=== PATIENT | male | born 1965 | race African-American/Black ===

== ENCOUNTER 2016-08-17 09:23 | Inpatient (IN) | payer MEDICAID ==
[2016-08-17] MEDS ORDERED: FAMOTIDINE 20 MG TABLET PO ONE (10:09)
--- NOTE | 2016-08-17 10:11 | ER Document Report ---
ED Medical Screen (RME) - General Chief Complaint: Abdominal Pain Stated Complaint: ABDOMINAL PAIN Time seen by provider: 10:10 Mode of Arrival: Ambulatory Information source: Patient Notes: 50-year-old male presents to ED for abdominal cramping pain radiating to the chest and back. Generalized 5 out of 5. States he ate some raw or blisters last night about 10:00 pain started at 2 AM. Has a history of chronic back pain high blood pressure cholesterol and reflux. We'll order cardiac labs lipase x-rays and EKG as well as Pepcid. I have greeted and performed a rapid initial assessment of this patient. A comprehensive ED assessment and evaluation of the patient, analysis of test results and completion of medical decision making process will be conducted by an additional ED providers. TRAVEL OUTSIDE OF THE [place] IN LAST 30 DAYS: No - Related Data Allergies/Adverse Reactions: No Known Allergies Allergy (Verified 08/17/16 10:09) Past Medical History - Past Medical History Cardiac Medical History: Reports: Hx Hypertension Endocrine Medical History: Reports: Hx Diabetes Mellitus Type 1 Renal/ Medical History: Denies: Hx Peritoneal Dialysis GI Medical History: Reports: Hx Cirrhosis, Hx Hepatitis Infectious Medical History: Reports: Hx Hepatitis Physical Exam - Vital signs Vitals: Temp Pulse Resp BP Pulse Ox 97.4 F 91 20 119/89 H 98 08/17/16 09:30 08/17/16 09:30 08/17/16 09:30 08/17/16 09:30 08/17/16 09:30 Course - Vital Signs Vital signs: Temp Pulse Resp BP Pulse Ox 97.4 F 91 20 119/89 H 98 08/17/16 09:30 08/17/16 09:30 08/17/16 09:30 08/17/16 09:30 08/17/16 09:30
[2016-08-17] MEDS ORDERED: NORMAL SALINE 1000 ML 1,000 ML IV ONE ×2 (10:23→11:48)
[2016-08-17] MEDS ORDERED: ONDANSETRON HCL INJ/PF 4 MG/2 ML SDV IV ONE (10:24)
--- NOTE | 2016-08-17 10:29 | ER Document Report ---
ED General - General Chief Complaint: Abdominal Pain Stated Complaint: ABDOMINAL PAIN Time seen by provider: 10:25 Mode of Arrival: Ambulatory Information source: Patient Notes: 50-year-old male began developing epigastric pain about 2 AM the now involves his entire abdomen worse in the left upper quadrant and occasionally moving into the left lower chest. At times been associated with diaphoresis and nausea and he reports one episode of vomiting after arrival here. He reports last bowel movement yesterday was normal for him. He denies fever, chills, cough, shortness of breath, hematemesis, hematochezia, or melena. He ate oysters yesterday evening and he speculates that this might be a reaction to that. He doesn't recall prior episodes of pain like this. He reports history of cirrhosis secondary to alcohol use and hepatitis C. He says he still drinking alcohol says he didn't complete treatment for hepatitis C. He follows with a physician in [place] for this. Physical Exam: General: Alert, appears well. HEENT: Normocephalic. Atraumatic. PERRLA. Extraocular movements intact. Oropharynx clear. Neck: Supple. Non-tender. No JVD Respiratory: No respiratory distress. Clear and equal breath sounds bilaterally. Chest is not tender to palpation Cardiovascular: Regular rate and rhythm. PMI not displaced Abdominal: Normal Inspection. Soft. Moderate left upper quadrant tenderness. Mild tenderness in the epigastric region and left lower quadrant. No guarding rebound rigidity or referred pain. Back: Non-tender. No deformity or step off. Extremities all warm to plus pulses no cyanosis no Homans sign trace pedal edema bilaterally Neurological: Speech clear mentation normal sign language teacher strength 5 out of 5 equal both upper extremities motor function 5 out of 5 and equal both lower extremities Psychological: Normal affect. Normal Mood. Skin: Warm. Dry. Normal color. TRAVEL OUTSIDE OF THE [place] IN LAST 30 DAYS: No - Related Data Allergies/Adverse Reactions: No Known Allergies Allergy (Verified 08/17/16 10:09) Past Medical History - General Information source: Patient - Social History Smoking Status: Never Smoker Frequency of alcohol use: Heavy Family History: None Patient has suicidal ideation: No Patient has homicidal ideation: No - Past Medical History Cardiac Medical History: Reports: Hx Hypertension Endocrine Medical History: Reports: Hx Diabetes Mellitus Type 1 Renal/ Medical History: Denies: Hx Peritoneal Dialysis GI Medical History: Reports: Hx Cirrhosis, Hx Hepatitis Infectious Medical History: Reports: Hx Hepatitis Past Surgical History: Reports: Other - Multiple surgeries for vascular repair to right forearm - Immunizations Hx Pneumococcal Vaccination: 04/15/10 Review of Systems - Review of Systems Constitutional: Weight gain - Patient unsure how much. denies: Fever, Weakness EENT: denies: Ear pain, Nose pain, Throat pain Cardiovascular: See HPI Respiratory: denies: Cough, Short of breath, Wheezing Gastrointestinal: See HPI Genitourinary: denies: Burning, Hematuria Musculoskeletal: Leg swelling. denies: Back pain Skin: denies: Rash Hematologic/Lymphatic: denies: Swollen glands Neurological/Psychological: denies: Weakness, Numbness Physical Exam - Vital signs Vitals: Temp Pulse Resp BP Pulse Ox 97.4 F 91 20 119/89 H 98 08/17/16 09:30 08/17/16 09:30 08/17/16 09:30 08/17/16 09:30 08/17/16 09:30 Course - Re-evaluation Re-evalutation: 08/17/16 15:08 Reevaluation shows essentially no change in exam. Workup find evidence for alcohol pancreatitis the patient now reports he has had that problem in the past which required admission but he thinks it's been several years since the last time. Patient requests admission locally and agreeable of this facility can handle this problem he has no evidence for gallstone pancreatitis. I discussed case with Dr. Leahy of the hospitalist service and he will be admitting patient patient's magnesium and potassium are low and these were supplemented - Vital Signs Vital signs: Temp Pulse Resp BP Pulse Ox 97.4 F 91 19 119/89 H 99 08/17/16 09:30 08/17/16 09:30 08/17/16 13:00 08/17/16 09:30 08/17/16 13:00 - Laboratory Result Diagrams: 08/17/16 10:40 08/17/16 10:40 Laboratory results interpreted by me: 08/17/16 08/17/16 08/17/16 10:40 10:40 11:00 RBC 3.94 L Hgb 12.3 L Hct 36.7 L RDW 14.1 H Plt Count 112 L Seg Neutrophils % 80.7 H Sodium 147.3 H Potassium 3.3 L Carbon Dioxide 20 L Anion Gap 20 H Glucose 184 H Magnesium 1.2 L* AST 71 H ALT 76 H Lipase 2525.5 H Urine Blood SMALL H - Diagnostic Test Radiology reviewed: Image reviewed, Reports reviewed - EKG Interpretation by Me Additional EKG results interpreted by me: 08/17/16 10:31 EKG reviewed by myself shows sinus tachycardia at 103 with no acute changes Discharge - Discharge Clinical Impression: Hypokalemia, Hypomagnesemia Alcohol-induced pancreatitis Qualifiers: Chronicity: acute Acute pancreatitis complication: no infection or necrosis Qualified Code(s): K85.20 - Alcohol induced acute pancreatitis without necrosis or infection Condition: Fair Disposition: ADMITTED INPATIENT Admitting Provider: Hospitalist Unit Admitted: Telemetry
[2016-08-17 10:55] LABS: ABSOLUTE LYMPHOCYTES (AUTO) 1.1 10^3/uL (0.5-4.7); ABSOLUTE MONOCYTES (AUTO) 0.3 10^3/uL (0.1-1.4); ABSOLUTE NEUT (AUTO) 6.1 10^3/uL (1.7-8.2); BASOPHILS % (AUTO) 0.6 % (0-2); HEMATOCRIT 36.7 % (37.9-51.0); HEMOGLOBIN 12.3 g/dL (13.5-17.0); HGB HCT DIFFERENCE 0.2; LYMPHOCYTES % (AUTO) 14.3 % (13-45); MEAN CORPUSCULAR HEMOGLOBIN 31.2 pg (27.0-33.4); MEAN CORPUSCULAR HGB CONC 33.5 g/dL (32.0-36.0); MEAN CORPUSCULAR VOLUME 93 fl (80-97); MONOCYTES % (AUTO) 4.4 % (3-13); RED BLOOD COUNT 3.94 10^6/uL (4.35-5.55); RED CELL DISTRIBUTION WIDTH 14.1 % (11.5-14.0); SEGMENTED NEUTROPHILS % (AUTO) 80.7 % (42-78); WHITE BLOOD COUNT 7.6 10^3/uL (4.0-10.5)
[2016-08-17 11:15] LABS: ALANINE AMINOTRANSFERASE 76 U/L (21-72); ALCOHOL 108 mg/dL (NONE DETECTED); ALKALINE PHOSPHATASE 116 U/L (38-126); ASPARTATE AMINO TRANSFERASE 71 U/L (17-59); BILIRUBIN,DIRECT 0.4 mg/dL (0.0-0.4); BILIRUBIN,TOTAL 0.6 mg/dL (0.2-1.3); BLOOD UREA NITROGEN 15 mg/dL (7-20); CALCIUM 8.6 mg/dL (8.4-10.2); CARBON DIOXIDE 20 mmol/L (22-30); CHLORIDE 107 mmol/L (98-107); CREATINE KINASE 138 U/L (55-170); CREATININE RESULT 0.83 mg/dL (0.52-1.25); GLUCOSE 184 mg/dL (75-110); POTASSIUM 3.3 mmol/L (3.6-5.0); SODIUM 147.3 mmol/L (137-145); TOTAL PROTEIN 7.8 g/dL (6.3-8.2)
[2016-08-17 11:26] LABS: CREATINE KINASE MB 1.25 ng/mL (<4.55)
[2016-08-17 11:28] LABS: TROPONIN I < 0.012 ng/mL
[2016-08-17 11:29] LABS: APPEARANCE,URINE CLEAR; BILIRUBIN,URINE NEGATIVE (NEGATIVE); GLUCOSE, URINE NEGATIVE (NEGATIVE); KETONES,URINE NEGATIVE (NEGATIVE); LEUKOCYTE ESTERASE,URINE NEGATIVE (NEGATIVE); NITRITE,URINE NEGATIVE (NEGATIVE); PROTEIN,URINE NEGATIVE (NEGATIVE); URINE SPECIFIC GRAVITY 1.013; UROBILINOGEN,URINE NEGATIVE mg/dL (<2.0)
[2016-08-17 11:33] LABS: LIPASE 2525.5 U/L (23-300)
[2016-08-17 11:35] LABS: MAGNESIUM 1.2 mg/dL (1.6-2.3)
[2016-08-17 11:46] LABS: ANION GAP 20 (5-19)
[2016-08-17] MEDS ORDERED: POTASSI CL 20 MEQ/NS 1L 1,000 ML IV ONE (11:49)
[2016-08-17] MEDS ORDERED: THIAMINE HCL 100 MG in NORMAL SALINE 50 ML IV ONE (12:06)
[2016-08-17] MEDS ORDERED: FOLIC ACID INJ 5 MG/1 ML 10 ML VIAL IV PRN (12:06)
[2016-08-17] MEDS: MAGNESIUM SULFATE/D5W 100 ML IV SCH ×4 (12:41→17:35)
--- NOTE | 2016-08-17 12:47 | EKG REPORT ---
SEVERITY:- BORDERLINE ECG - SINUS TACHYCARDIA BORDERLINE PROLONGED QT INTERVAL : Confirmed by: Dionicio Kaur MD 17-Aug-2016 12:46:30
[2016-08-17] MEDS ORDERED: MORPHINE SULFATE 10 MG/ML INJ IV ONE (12:49)
[2016-08-17] MEDS ORDERED: THIAMINE HCL 100 MG, FOLIC ACID 1 MG in NORMAL SALINE 50 ML IV ONE (13:15)
[2016-08-17] MEDS ORDERED: LORAZEPAM INJ 2 MG/1 ML VIAL IV PRN (15:32)
[2016-08-17] MEDS ORDERED: ONDANSETRON HCL INJ/PF 4 MG/2 ML SDV IV PRN (15:35)
[2016-08-17] MEDS ORDERED: DEXTROSE 40% GEL 15 GM TUBE PO PRN ×2 (15:42)
[2016-08-17] MEDS ORDERED: GLUCAGON,HUMAN RECOMB 1 MG INJ IM PRN (15:42)
[2016-08-17] MEDS ORDERED: HYDRALAZINE HCL INJ/PF 20 MG/1 ML SDV IV PRN (15:42)
[2016-08-17] MEDS ORDERED: DEXTROSE 50%-WATER 25 GM/50 ML DISP.SYRIN IV PRN ×2 (15:42)
--- NOTE | 2016-08-17 16:28 | PDOC H&P ---
History of Present Illness Admission Date/PCP: 08/17/16 15:35 Dixon Ruffin MD Patient complains of: Abdominal pain History of Present Illness: KELL HERNÁNDEZ III is a 50 year old male with past medical history of alcohol abuse, hepatitis C cirrhosis, type II diabetes, hypertension, gout, pancreatitis history presents to the emergency department with onset at 2 AM of pancreatitis. Last alcohol use was last night. He states he has never been through alcohol withdrawal. Medications listed below have not been verified at the time of this documentation. Past Medical History Cardiac Medical History: Reports: Hypertension Endocrine Medical History: Reports: Diabetes Mellitus Type 2 GI Medical History: Reports: Cirrhosis, Hepatitis Infectious Medical History: Reports: Hepatitis C Past Surgical History Past Surgical History: Reports: Other - Multiple surgeries for vascular repair to right forearm Social History Information Source: Patient Lives with: Spouse/Significant other Smoking Status: Never Smoker Frequency of Alcohol Use: Heavy Hx Recreational Drug Use: No Hx Prescription Drug Abuse: No - Advance Directive Resuscitation Status: Full Code Family History Family History: CAD - Father, Other - Gout-father Parental Family History Reviewed: Yes Children Family History Reviewed: Yes Sibling(s) Family History Reviewed.: Yes Medication/Allergy Home Medications: Amlodipine Besylate tab PO DAILY 10/19/12 Aspirin 81 mg PO DAILY 10/19/12 Insulin Glargine,Hum.rec.anlog [Lantus Insulin 100 Unit/mL] 10 unit SUBCUT QHS 10/19/12 Lisinopril [Prinivil 2.5 mg Tablet] mg PO 10/19/12 Metformin HCl 1,000 mg PO BID 10/19/12 Omeprazole [Prilosec 10 mg Capsule] mg PO 10/19/12 Magnesium Oxide [Mag-Ox 400 mg Tablet] 400 mg PO BID #60 tablet 10/20/12 Allergies/Adverse Reactions: No Known Allergies Allergy (Verified 08/17/16 10:09) Review of Systems Constitutional: ABSENT: chills, fever(s), headache(s), weight gain, weight loss Eyes: ABSENT: visual disturbances Ears: ABSENT: hearing changes Cardiovascular: ABSENT: chest pain, dyspnea on exertion, edema, orthropnea, palpitations Respiratory: ABSENT: cough, hemoptysis Gastrointestinal: PRESENT: abdominal pain, nausea, vomiting. ABSENT: constipation, diarrhea, hematemesis, hematochezia Genitourinary: ABSENT: dysuria, hematuria Musculoskeletal: ABSENT: joint swelling Integumentary: ABSENT: rash, wounds Neurological: ABSENT: abnormal gait, abnormal speech, confusion, dizziness, focal weakness, syncope Psychiatric: ABSENT: anxiety, depression, homidical ideation, suicidal ideation Endocrine: ABSENT: cold intolerance, heat intolerance, polydipsia, polyuria Hematologic/Lymphatic: ABSENT: easy bleeding, easy bruising Physical Exam Vital Signs: Temp Pulse Resp BP Pulse Ox 97.4 F 91 19 119/89 H 99 08/17/16 09:30 08/17/16 09:30 08/17/16 13:00 08/17/16 09:30 08/17/16 13:00 PHYSICAL EXAM: GENERAL: Appears well, no acute distress HEENT: Normocephalic, no scleral icterus, conjunctiva clear, EOEM intact, PERRLA , moist mucous membranes NECK: trachea midline, no thyromegally RESPIRATORY: Clear to auscultation, no wheezes/rhonchi CARDIAC: Regular rate and rhythm, no murmur/fanny/rub ABDOMEN: Soft, mild abdominal distension, diffuse tenderness and guarding, normal bowel sounds, negative Lang sign RECTAL: deferred : deferred EXTREMITIES: No edema, cyanosis, clubbing MUSCULOSKELETAL: No joint swelling or deformity VASCULAR: normal peripheral pulses NEUROLOGIC: Alert, oriented to person/place/time, normal speech, cranial nerves grossly intact, 5/5 strength in all extremities, tactile sensation intact in all extremities SKIN: No rash, no wounds, no worrisome skin lesions PSYCHIATRIC: Normal mood, normal affect Results Laboratory Results: Labs- All tests 24 hr 08/17/16 08/17/16 08/17/16 10:40 10:40 10:40 WBC 7.6 RBC 3.94 L Hgb 12.3 L Hct 36.7 L MCV 93 MCH 31.2 MCHC 33.5 RDW 14.1 H Plt Count 112 L Seg Neutrophils % 80.7 H Lymphocytes % 14.3 Monocytes % 4.4 Eosinophils % 0.0 Basophils % 0.6 Absolute Neutrophils 6.1 Absolute Lymphocytes 1.1 Absolute Monocytes 0.3 Absolute Eosinophils 0.0 Absolute Basophils 0.0 Sodium 147.3 H Potassium 3.3 L Chloride 107 Carbon Dioxide 20 L Anion Gap 20 H BUN 15 Creatinine 0.83 Est GFR ( Amer) > 60 Est GFR (Non-Af Amer) > 60 Glucose 184 H Calcium 8.6 Magnesium 1.2 L* Total Bilirubin 0.6 Direct Bilirubin 0.4 Indirect Bilirubin Not Reportable Neonat Total Bilirubin Not Reportable AST 71 H ALT 76 H Alkaline Phosphatase 116 Creatine Kinase 138 CK-MB (CK-2) 1.25 Troponin I < 0.012 NT-Pro-B Natriuret Pep 41 Total Protein 7.8 Albumin 4.0 Lipase 2525.5 H Urine Color Urine Appearance Urine pH Ur Specific [place] Urine Protein Urine Glucose (UA) Urine Ketones Urine Blood Urine Nitrite Urine Bilirubin Urine Urobilinogen Ur Leukocyte Esterase Urine RBC (Auto) U Hyaline Cast (Auto) Urine Mucus (Auto) Urine Ascorbic Acid Serum Alcohol 108 08/17/16 11:00 WBC RBC Hgb Hct MCV MCH MCHC RDW Plt Count Seg Neutrophils % Lymphocytes % Monocytes % Eosinophils % Basophils % Absolute Neutrophils Absolute Lymphocytes Absolute Monocytes Absolute Eosinophils Absolute Basophils Sodium Potassium Chloride Carbon Dioxide Anion Gap BUN Creatinine Est GFR ( Amer) Est GFR (Non-Af Amer) Glucose Calcium Magnesium Total Bilirubin Direct Bilirubin Indirect Bilirubin Neonat Total Bilirubin AST ALT Alkaline Phosphatase Creatine Kinase CK-MB (CK-2) Troponin I NT-Pro-B Natriuret Pep Total Protein Albumin Lipase Urine Color YELLOW Urine Appearance CLEAR Urine pH 5.0 Ur Specific [place] 1.013 Urine Protein NEGATIVE Urine Glucose (UA) NEGATIVE Urine Ketones NEGATIVE Urine Blood SMALL H Urine Nitrite NEGATIVE Urine Bilirubin NEGATIVE Urine Urobilinogen NEGATIVE Ur Leukocyte Esterase NEGATIVE Urine RBC (Auto) 1 U Hyaline Cast (Auto) 3 Urine Mucus (Auto) RARE Urine Ascorbic Acid NEGATIVE Serum Alcohol Impressions: Abdomen/Pelvis CT 08/17/16 10:23 IMPRESSION: There are some minimal edematous or inflammatory changes in the mesenteric fat adjacent to the tail the pancreas. A small amount of free fluid is identified in the left pericolic gutter. No discrete pancreatic mass or fluid collection is identified. Clinical correlation is recommended right pancreatitis involving the pancreatic tail. Small umbilical hernia is identified containing fat. Other findings as noted above Chest X-Ray 08/17/16 10:23 IMPRESSION: NO ACUTE RADIOGRAPHIC FINDING IN THE CHEST. Abdomen Ultrasound 08/17/16 11:47 IMPRESSION: 1. Borderline common bile duct with questionable small amount of sludge in the gallbladder. No gallstones are seen, however. There is no pericholecystic fluid or gallbladder wall thickening. 2. Hepatomegaly. Assessment & Plan - Diagnosis (1) Alcoholic pancreatitis Qualifiers: Chronicity: acute Acute pancreatitis complication: no infection or necrosis Qualified Code(s): K85.20 - Alcohol induced acute pancreatitis without necrosis or infection Is this a current diagnosis for this admission?: YesPlan: Admit to the hospital. IV fluids. Nothing by mouth status. When necessary analgesics and antiemetics. Follow-up lipase. Check lipid panel. Right upper quadrant ultrasound negative for gallstones. (2) Diabetes Qualifiers: Diabetes mellitus type: type 2 Diabetes mellitus complication status: without complication Diabetes mellitus residential insulin use: with terminal worker use Qualified Code(s): E11.9 - Type 2 diabetes mellitus without complications; Z79.4 - skilled nursing (current) use of insulin Is this a current diagnosis for this admission?: YesPlan: Hold Lantus while nothing by mouth (patient usually takes Lantus 5 units daily) . Sliding scale insulin coverage. Check hemoglobin A1c. (3) Hypertension Is this a current diagnosis for this admission?: YesPlan: Hold routine medications for now. When necessary IV hydralazine. (4) Hypernatremia Is this a current diagnosis for this admission?: YesPlan: Hypotonic saline. (5) Hepatitis C Is this a current diagnosis for this admission?: Yes (6) Cirrhosis Is this a current diagnosis for this admission?: Yes (7) Gout Is this a current diagnosis for this admission?: Yes (8) Hypokalemia Is this a current diagnosis for this admission?: Yes (9) Hypomagnesemia Is this a current diagnosis for this admission?: Yes - Time Time Spent: Greater than 70 Minutes Anticipated discharge: Home - Inpatient Certification Based on my medical assessment, after consideration of the patient's comorbidities, presenting symptoms, or acuity I expect that the services needed warrant INPATIENT care.: Yes I certify that my determination is in accordance with my understanding of Medicare's requirements for reasonable and necessary INPATIENT services [42 CFR 412.3e].: Yes Medical Necessity: Need Close Monitoring Due to Risk of Patient Decompensation, Need For IV Fluids, Need for Pain Control
[2016-08-17] MEDS: HYDROMORPHONE HCL INJ/PF 2 MG/ML AMPULE IV PRN ×2 (16:41→23:25)
[2016-08-17] MEDS: PANTOPRAZOLE SODIUM 40 MG VIAL IV SCH (22:32)
[2016-08-17] MEDS: POTASSI CL 20 MEQ/1/2NS 1L 1,000 ML IV PRN (23:02)
[2016-08-18] MEDS: HYDROMORPHONE HCL INJ/PF 2 MG/ML AMPULE IV PRN ×4 (03:01→20:11)
[2016-08-18] MEDS: POTASSI CL 20 MEQ/1/2NS 1L 1,000 ML IV PRN ×3 (04:07→20:03)
[2016-08-18 05:43] LABS: ABSOLUTE LYMPHOCYTES (AUTO) 4.3 10^3/uL (0.5-4.7); ABSOLUTE MONOCYTES (AUTO) 0.9 10^3/uL (0.1-1.4); ABSOLUTE NEUT (AUTO) 8.6 10^3/uL (1.7-8.2); BASOPHILS % (AUTO) 0.3 % (0-2); EOSINOPHILS % (AUTO) 0.2 % (0-6); HEMOGLOBIN 11.9 g/dL (13.5-17.0); HGB HCT DIFFERENCE 0.7; LYMPHOCYTES % (AUTO) 30.8 % (13-45); MEAN CORPUSCULAR HEMOGLOBIN 31.4 pg (27.0-33.4); MEAN CORPUSCULAR VOLUME 92 fl (80-97); MONOCYTES % (AUTO) 6.6 % (3-13); RED BLOOD COUNT 3.79 10^6/uL (4.35-5.55); RED CELL DISTRIBUTION WIDTH 14.1 % (11.5-14.0); SEGMENTED NEUTROPHILS % (AUTO) 62.1 % (42-78); WHITE BLOOD COUNT 13.9 10^3/uL (4.0-10.5)
[2016-08-18 06:06] LABS: ALANINE AMINOTRANSFERASE 68 U/L (21-72); ALBUMIN 3.6 g/dL (3.5-5.0); ALKALINE PHOSPHATASE 109 U/L (38-126); ANION GAP 13 (5-19); ASPARTATE AMINO TRANSFERASE 72 U/L (17-59); BILIRUBIN,DIRECT 0.7 mg/dL (0.0-0.4); BILIRUBIN,TOTAL 1.9 mg/dL (0.2-1.3); BLOOD UREA NITROGEN 7 mg/dL (7-20); CALCIUM 7.4 mg/dL (8.4-10.2); CARBON DIOXIDE 23 mmol/L (22-30); CHLORIDE 106 mmol/L (98-107); CHOLESTEROL 64.69 mg/dL (0-200); CREATININE RESULT 0.69 mg/dL (0.52-1.25); Direct HDL 20 mg/dL (>40); GLUCOSE 147 mg/dL (75-110); LIPASE 1065.4 U/L (23-300); MAGNESIUM 1.3 mg/dL (1.6-2.3); SODIUM 142.3 mmol/L (137-145); TRIGLYCERIDES 150 mg/dL (<150)
[2016-08-18 06:07] LABS: TOTAL PROTEIN 7.4 g/dL (6.3-8.2)
[2016-08-18 06:42] LABS: DIRECT LDL < 30 mg/dL (<100)
[2016-08-18] MEDS ORDERED: FONDAPARINUX SODIUM INJ 2.5 MG/0.5 ML DISP.SYRIN SUBCUT SCH (08:00)
[2016-08-18] MEDS ORDERED: MAGNESIUM SULFATE/D5W 100 ML IV SCH (09:00)
[2016-08-18] MEDS: PANTOPRAZOLE SODIUM 40 MG VIAL IV SCH ×2 (10:59→23:04)
[2016-08-18] MEDS: POTASSI CL 20 MEQ/50 ML RIDER 50 ML IV SCH ×2 (10:59→13:18)
[2016-08-18] MEDS: THIAMINE HCL 100 MG, FOLIC ACID 1 MG in NORMAL SALINE 50 ML IV SCH (11:07)
--- NOTE | 2016-08-18 14:25 | PDOC PROGRESS REPORT ---
Subjective Progress Note for:: 08/18/16 Subjective:: Patient is having continued abdominal pain radiating to his mid back. He denies nausea, vomiting, fever, chills, chest pain, shortness of breath. Physical Exam Vital Signs: Temp Pulse Resp BP Pulse Ox 98.6 F 107 H 17 142/85 H 96 08/18/16 11:34 08/18/16 11:34 08/18/16 11:34 08/18/16 11:34 08/18/16 11:34 Intake & Output 08/17/16 08/18/16 08/19/16 06:59 06:59 06:59 Intake Total 1767 150 Balance 1767 150 Weight 96.8 kg GENERAL: No acute distress HEENT: Conjunctiva clear, nonicteric, moist mucous membranes, no JVD, midline trachea RESPIRATORY: Clear to auscultation bilaterally, no wheezes, no rhonchi CARDIAC: Regular rate and rhythm, no murmurs/gallops/rubs ABDOMEN: Distended, diffusely tender, no guarding, positive bowel sounds EXTREMETIES: No edema, cyanosis, clubbing NEUROLOGIC: Alert, oriented to person/place/time, CN's grossly intact, no focal deficits SKIN: No rash, wounds PSYCH: Normal mood, normal affect Results Laboratory Results: 08/18/16 04:56 08/18/16 04:56 08/18/16 08/18/16 04:56 04:56 WBC 13.9 H RBC 3.79 L Hgb 11.9 L Hct 35.0 L MCV 92 MCH 31.4 MCHC 34.0 RDW 14.1 H Plt Count 93 L Seg Neutrophils % 62.1 Lymphocytes % 30.8 Monocytes % 6.6 Eosinophils % 0.2 Basophils % 0.3 Absolute Neutrophils 8.6 H Absolute Lymphocytes 4.3 Absolute Monocytes 0.9 Absolute Eosinophils 0.0 Absolute Basophils 0.0 Sodium 142.3 Potassium 3.0 L* Chloride 106 Carbon Dioxide 23 Anion Gap 13 BUN 7 Creatinine 0.69 Est GFR ( Amer) > 60 Est GFR (Non-Af Amer) > 60 Glucose 147 H Calcium 7.4 L Magnesium 1.3 L Total Bilirubin 1.9 H AST 72 H ALT 68 Alkaline Phosphatase 109 Total Protein 7.4 Albumin 3.6 Triglycerides 150 Cholesterol 64.69 LDL Cholesterol Direct < 30 VLDL Cholesterol 30.0 HDL Cholesterol 20 L Lipase 1065.4 H Impressions: Abdomen/Pelvis CT 08/17/16 10:23 IMPRESSION: There are some minimal edematous or inflammatory changes in the mesenteric fat adjacent to the tail the pancreas. A small amount of free fluid is identified in the left pericolic gutter. No discrete pancreatic mass or fluid collection is identified. Clinical correlation is recommended right pancreatitis involving the pancreatic tail. Small umbilical hernia is identified containing fat. Other findings as noted above Chest X-Ray 08/17/16 10:23 IMPRESSION: NO ACUTE RADIOGRAPHIC FINDING IN THE CHEST. Abdomen Ultrasound 08/17/16 11:47 IMPRESSION: 1. Borderline common bile duct with questionable small amount of sludge in the gallbladder. No gallstones are seen, however. There is no pericholecystic fluid or gallbladder wall thickening. 2. Hepatomegaly. Assessment & Plan - Diagnosis (1) Alcoholic pancreatitis Qualifiers: Chronicity: acute Acute pancreatitis complication: no infection or necrosis Qualified Code(s): K85.20 - Alcohol induced acute pancreatitis without necrosis or infection Is this a current diagnosis for this admission?: YesPlan: Continue IV fluids. Nothing by mouth status. When necessary analgesics and antiemetics. Follow-up lipase. Triglyceride level 150. Right upper quadrant ultrasound negative for gallstones. (2) Alcohol abuse Is this a current diagnosis for this admission?: YesPlan: Continue thiamine supplementation. Monitor for signs of withdrawal. When necessary Ativan. (3) Diabetes Qualifiers: Diabetes mellitus type: type 2 Diabetes mellitus complication status: without complication Diabetes mellitus intermediate teacher insulin use: with nursing home use Qualified Code(s): E11.9 - Type 2 diabetes mellitus without complications Is this a current diagnosis for this admission?: YesPlan: Hold Lantus while nothing by mouth (patient usually takes Lantus 5 units daily) . Sliding scale insulin coverage. Hemoglobin A1c 5.2. (4) Hypertension Is this a current diagnosis for this admission?: YesPlan: Resume metoprolol 50 mg twice daily. Continue to hold Norvasc for now. When necessary IV hydralazine. (5) Hypernatremia Is this a current diagnosis for this admission?: YesPlan: Resolved. (6) Hepatitis C Is this a current diagnosis for this admission?: Yes (7) Cirrhosis Is this a current diagnosis for this admission?: Yes (8) Gout Is this a current diagnosis for this admission?: Yes (9) Hypokalemia Is this a current diagnosis for this admission?: YesPlan: Replace as needed. (10) Hypomagnesemia Is this a current diagnosis for this admission?: YesPlan: Replace as needed. - Time Time Spent with patient: 35 or more minutes Anticipated discharge: Home
[2016-08-18] MEDS ORDERED: MAGNESIUM SULFATE/D5W 1 GM/100 ML RTUPB IV ONE (15:15)
[2016-08-18] MEDS: METOPROLOL TARTRATE 50 MG TABLET PO SCH (17:29)
[2016-08-19] MEDS: POTASSI CL 20 MEQ/1/2NS 1L 1,000 ML IV PRN ×5 (01:16→23:54)
[2016-08-19] MEDS: HYDROMORPHONE HCL INJ/PF 2 MG/ML AMPULE IV PRN ×4 (03:47→23:53)
[2016-08-19] MEDS: METOPROLOL TARTRATE 50 MG TABLET PO SCH ×2 (06:11→17:35)
[2016-08-19 07:32] LABS: HEMATOCRIT 36.1 % (37.9-51.0); HGB HCT DIFFERENCE -0.1; MEAN CORPUSCULAR HEMOGLOBIN 31.1 pg (27.0-33.4); MEAN CORPUSCULAR HGB CONC 33.2 g/dL (32.0-36.0); MEAN CORPUSCULAR VOLUME 94 fl (80-97); RED BLOOD COUNT 3.85 10^6/uL (4.35-5.55); RED CELL DISTRIBUTION WIDTH 13.9 % (11.5-14.0)
[2016-08-19 07:33] LABS: ALANINE AMINOTRANSFERASE 57 U/L (21-72); ALBUMIN 3.5 g/dL (3.5-5.0); ALKALINE PHOSPHATASE 116 U/L (38-126); ANION GAP 12 (5-19); ASPARTATE AMINO TRANSFERASE 63 U/L (17-59); BILIRUBIN,DIRECT 1.2 mg/dL (0.0-0.4); BILIRUBIN,TOTAL 2.6 mg/dL (0.2-1.3); BLOOD UREA NITROGEN 5 mg/dL (7-20); CARBON DIOXIDE 20 mmol/L (22-30); CHLORIDE 104 mmol/L (98-107); CREATININE RESULT 0.69 mg/dL (0.52-1.25); GLUCOSE 142 mg/dL (75-110); LIPASE 398.9 U/L (23-300); POTASSIUM 3.7 mmol/L (3.6-5.0); TOTAL PROTEIN 7.5 g/dL (6.3-8.2)
[2016-08-19 07:42] LABS: CALCIUM 6.9 mg/dL (8.4-10.2); MAGNESIUM 1.2 mg/dL (1.6-2.3)
[2016-08-19 07:53] LABS: BASOPHILS % (MANUAL) 0 % (0-2); EOSINOPHILS % (MANUAL) 0 % (0-6); LYMPHOCYTES % (MANUAL) 18 % (13-45); TOTAL CELLS COUNTED 100
[2016-08-19 07:56] LABS: HYPOCHROMASIA SLIGHT
[2016-08-19] MEDS ORDERED: CALCIUM GLUCONATE 1,000 MG in DEXTROSE 5%-WATER 50 ML IV ONE (08:15)
[2016-08-19] MEDS ORDERED: CALCIUM GLUCONATE 1000 MG/10 ML INJ IV ONE (10:00)
[2016-08-19] MEDS: MAGNESIUM SULFATE/D5W 100 ML IV SCH ×2 (10:08→11:11)
[2016-08-19] MEDS: THIAMINE HCL 100 MG, FOLIC ACID 1 MG in NORMAL SALINE 50 ML IV SCH (11:11)
[2016-08-19] MEDS: PANTOPRAZOLE SODIUM 40 MG VIAL IV SCH ×2 (11:12→21:35)
[2016-08-19] MEDS: PIPERACILLIN SODIUM/TAZOBACTAM 3.375 GM in NORMAL SALINE 100 ML IV SCH ×3 (12:23→23:54)
--- NOTE | 2016-08-19 14:21 | PDOC PROGRESS REPORT ---
Subjective Progress Note for:: 08/19/16 Subjective:: Patient is having continued abdominal pain radiating to his mid back. He now also complains of pain and stiffness in his left knee. He does have a history of gout. He denies nausea, vomiting, fever, chills, chest pain, shortness of breath. Physical Exam Vital Signs: Temp Pulse Resp BP Pulse Ox 99.8 F 90 18 149/82 H 97 08/19/16 12:02 08/19/16 12:02 08/19/16 12:02 08/19/16 12:02 08/19/16 12:02 Intake & Output 08/18/16 08/19/16 08/20/16 06:59 06:59 06:59 Intake Total 1767 4650 Output Total 750 Balance 1767 3900 Weight 96.8 kg 97.9 kg GENERAL: No acute distress HEENT: Conjunctiva clear, nonicteric, moist mucous membranes, no JVD, midline trachea RESPIRATORY: Clear to auscultation bilaterally, no wheezes, no rhonchi CARDIAC: Regular rate and rhythm, no murmurs/gallops/rubs ABDOMEN: Distended, diffusely tender, no guarding, positive bowel sounds EXTREMETIES: No edema, cyanosis, clubbing. Left knee swelling and tenderness NEUROLOGIC: Alert, oriented to person/place/time, CN's grossly intact, no focal deficits SKIN: No rash, wounds PSYCH: Normal mood, normal affect Results Laboratory Results: 08/19/16 06:39 08/19/16 06:39 08/19/16 08/19/16 06:39 06:39 WBC 20.0 H RBC 3.85 L Hgb 12.0 L Hct 36.1 L MCV 94 MCH 31.1 MCHC 33.2 RDW 13.9 Plt Count 74 L Seg Neutrophils % Not Reportable Lymphocytes % Not Reportable Monocytes % Not Reportable Eosinophils % Not Reportable Basophils % Not Reportable Absolute Neutrophils Not Reportable Absolute Lymphocytes Not Reportable Absolute Monocytes Not Reportable Absolute Eosinophils Not Reportable Absolute Basophils Not Reportable Sodium 136.0 L Potassium 3.7 Chloride 104 Carbon Dioxide 20 L Anion Gap 12 BUN 5 L Creatinine 0.69 Est GFR ( Amer) > 60 Est GFR (Non-Af Amer) > 60 Glucose 142 H Calcium 6.9 L* Magnesium 1.2 L* Total Bilirubin 2.6 H AST 63 H ALT 57 Alkaline Phosphatase 116 Total Protein 7.5 Albumin 3.5 Lipase 398.9 H Impressions: Abdomen Ultrasound 08/17/16 11:47 IMPRESSION: 1. Borderline common bile duct with questionable small amount of sludge in the gallbladder. No gallstones are seen, however. There is no pericholecystic fluid or gallbladder wall thickening. 2. Hepatomegaly. Abdomen/Pelvis CT 08/19/16 00:00 IMPRESSION: STABLE TO SLIGHTLY WORSENED PERIPANCREATIC INFLAMMATORY CHANGE WITH INCREASED FREE FLUID IN THE ABDOMEN AND PELVIS AND NEW SMALL LEFT PLEURAL EFFUSION ALL CONSISTENT WITH HISTORY OF PANCREATITIS. Chest X-Ray 08/19/16 08:20 IMPRESSION: NO ACUTE RADIOGRAPHIC FINDING IN THE CHEST. Assessment & Plan - Diagnosis (1) Alcoholic pancreatitis Qualifiers: Chronicity: acute Acute pancreatitis complication: no infection or necrosis Qualified Code(s): K85.20 - Alcohol induced acute pancreatitis without necrosis or infection Is this a current diagnosis for this admission?: YesPlan: Continue IV fluids. Nothing by mouth status. When necessary analgesics and antiemetics. Follow-up lipase. Triglyceride level 150. Right upper quadrant ultrasound negative for gallstones. (2) Alcohol abuse Is this a current diagnosis for this admission?: YesPlan: Continue thiamine supplementation. Monitor for signs of withdrawal. When necessary Ativan. (3) Diabetes Qualifiers: Diabetes mellitus type: type 2 Diabetes mellitus complication status: without complication Diabetes mellitus long-term insulin use: with middle or intermediate school principal use Qualified Code(s): E11.9 - Type 2 diabetes mellitus without complications Is this a current diagnosis for this admission?: YesPlan: Hold Lantus while nothing by mouth (patient usually takes Lantus 5 units daily) . Sliding scale insulin coverage. Hemoglobin A1c 5.2. (4) Hypertension Is this a current diagnosis for this admission?: YesPlan: Metoprolol 50 mg twice daily. Continue to hold Norvasc for now. When necessary IV hydralazine. (5) Hypernatremia Is this a current diagnosis for this admission?: YesPlan: Resolved. (6) Hepatitis C Is this a current diagnosis for this admission?: Yes (7) Cirrhosis Is this a current diagnosis for this admission?: Yes (8) Gout Is this a current diagnosis for this admission?: YesPlan: Give colchicine 1.2 mg 1 dose now and then 0.6 mg 1 dose in 2 hours. (9) Hypokalemia Is this a current diagnosis for this admission?: YesPlan: Replace as needed. (10) Hypomagnesemia Is this a current diagnosis for this admission?: YesPlan: Replace as needed. (11) Hypocalcemia Is this a current diagnosis for this admission?: YesPlan: Replace as needed. (12) Thrombocytopenia Is this a current diagnosis for this admission?: YesPlan: Likely secondary to alcohol abuse, cirrhosis, and pancreatitis. Discontinue Arixtra. Encouraged patient to ambulate. - Time Time Spent with patient: 35 or more minutes Anticipated discharge: Home
[2016-08-19] MEDS ORDERED: COLCHICINE 0.6 MG TABLET PO ONE (17:30)
[2016-08-20] MEDS: ACETAMINOPHEN 325 MG TABLET PO PRN (02:06)
[2016-08-20] MEDS: METOPROLOL TARTRATE 50 MG TABLET PO SCH ×2 (04:47→17:53)
[2016-08-20] MEDS: POTASSI CL 20 MEQ/1/2NS 1L 1,000 ML IV PRN ×2 (06:08→17:55)
[2016-08-20] MEDS: PIPERACILLIN SODIUM/TAZOBACTAM 3.375 GM in NORMAL SALINE 100 ML IV SCH ×4 (06:08→23:13)
[2016-08-20 06:19] LABS: ABSOLUTE LYMPHOCYTES (AUTO) 2.8 10^3/uL (0.5-4.7); ABSOLUTE MONOCYTES (AUTO) 1.5 10^3/uL (0.1-1.4); ABSOLUTE NEUT (AUTO) 14.2 10^3/uL (1.7-8.2); BASOPHILS % (AUTO) 0.2 % (0-2); EOSINOPHILS % (AUTO) 0.2 % (0-6); HEMATOCRIT 32.8 % (37.9-51.0); HEMOGLOBIN 11.1 g/dL (13.5-17.0); HGB HCT DIFFERENCE 0.5; MEAN CORPUSCULAR HEMOGLOBIN 31.5 pg (27.0-33.4); MEAN CORPUSCULAR HGB CONC 33.7 g/dL (32.0-36.0); MEAN CORPUSCULAR VOLUME 94 fl (80-97); MONOCYTES % (AUTO) 8.2 % (3-13); RED BLOOD COUNT 3.51 10^6/uL (4.35-5.55); RED CELL DISTRIBUTION WIDTH 13.9 % (11.5-14.0); SEGMENTED NEUTROPHILS % (AUTO) 76.4 % (42-78); WHITE BLOOD COUNT 18.6 10^3/uL (4.0-10.5)
[2016-08-20 06:22] LABS: PARTIAL THROMBOPLASTIN TIME 34.9 SEC (23.5-35.8)
[2016-08-20 06:38] LABS: ALANINE AMINOTRANSFERASE 47 U/L (21-72); ALBUMIN 3.2 g/dL (3.5-5.0); ALKALINE PHOSPHATASE 102 U/L (38-126); ANION GAP 15 (5-19); ASPARTATE AMINO TRANSFERASE 55 U/L (17-59); BILIRUBIN,DIRECT 1.4 mg/dL (0.0-0.4); BILIRUBIN,TOTAL 2.2 mg/dL (0.2-1.3); BLOOD UREA NITROGEN 5 mg/dL (7-20); CARBON DIOXIDE 17 mmol/L (22-30); CHLORIDE 104 mmol/L (98-107); CREATININE RESULT 0.76 mg/dL (0.52-1.25); GLUCOSE 116 mg/dL (75-110); LIPASE 236.1 U/L (23-300); MAGNESIUM 1.3 mg/dL (1.6-2.3); POTASSIUM 3.8 mmol/L (3.6-5.0); SODIUM 135.5 mmol/L (137-145); TOTAL PROTEIN 6.7 g/dL (6.3-8.2)
[2016-08-20 06:48] LABS: CALCIUM 6.8 mg/dL (8.4-10.2)
[2016-08-20] MEDS ORDERED: CALCIUM GLUCONATE 1,000 MG in DEXTROSE 5%-WATER 50 ML IV ONE (06:57)
[2016-08-20] MEDS ORDERED: MAGNESIUM SULFATE/D5W 100 ML IV SCH (07:00)
[2016-08-20] MEDS ORDERED: CALCIUM GLUCONATE 1000 MG/10 ML INJ IV ONE (07:30)
--- NOTE | 2016-08-20 08:34 | PDOC PROGRESS REPORT ---
Subjective Progress Note for:: 08/20/16 Subjective:: Abdominal pain improving. Left knee pain improving. No nausea or vomiting. No fevers or chills. +Flatus. Physical Exam Vital Signs: Temp Pulse Resp BP Pulse Ox 98.7 F 81 20 149/90 H 97 08/20/16 07:21 08/20/16 07:21 08/20/16 07:21 08/20/16 07:21 08/20/16 07:21 Intake & Output 08/19/16 08/20/16 08/21/16 06:59 06:59 06:59 Intake Total 4650 3490 Output Total 750 600 Balance 3900 2890 Weight 97.9 kg 100.6 kg GENERAL: No acute distress HEENT: Conjunctiva clear, nonicteric, moist mucous membranes, no JVD, midline trachea RESPIRATORY: Clear to auscultation bilaterally, no wheezes, no rhonchi CARDIAC: Regular rate and rhythm, no murmurs/gallops/rubs ABDOMEN: Distended, diffusely tender, no guarding, positive bowel sounds EXTREMETIES: No edema, cyanosis, clubbing. Left knee swelling and tenderness NEUROLOGIC: Alert, oriented to person/place/time, CN's grossly intact, no focal deficits SKIN: No rash, wounds PSYCH: Normal mood, normal affect Results Laboratory Results: 08/20/16 05:41 08/20/16 05:41 08/20/16 08/20/16 05:41 05:41 WBC 18.6 H RBC 3.51 L Hgb 11.1 L Hct 32.8 L MCV 94 MCH 31.5 MCHC 33.7 RDW 13.9 Plt Count 77 L Seg Neutrophils % 76.4 Lymphocytes % 15.0 Monocytes % 8.2 Eosinophils % 0.2 Basophils % 0.2 Absolute Neutrophils 14.2 H Absolute Lymphocytes 2.8 Absolute Monocytes 1.5 H Absolute Eosinophils 0.0 Absolute Basophils 0.0 Sodium 135.5 L Potassium 3.8 Chloride 104 Carbon Dioxide 17 L Anion Gap 15 BUN 5 L Creatinine 0.76 Est GFR ( Amer) > 60 Est GFR (Non-Af Amer) > 60 Glucose 116 H Calcium 6.8 L* Magnesium 1.3 L Total Bilirubin 2.2 H AST 55 ALT 47 Alkaline Phosphatase 102 Total Protein 6.7 Albumin 3.2 L Lipase 236.1 Impressions: Abdomen Ultrasound 08/17/16 11:47 IMPRESSION: 1. Borderline common bile duct with questionable small amount of sludge in the gallbladder. No gallstones are seen, however. There is no pericholecystic fluid or gallbladder wall thickening. 2. Hepatomegaly. Abdomen/Pelvis CT 08/19/16 00:00 IMPRESSION: STABLE TO SLIGHTLY WORSENED PERIPANCREATIC INFLAMMATORY CHANGE WITH INCREASED FREE FLUID IN THE ABDOMEN AND PELVIS AND NEW SMALL LEFT PLEURAL EFFUSION ALL CONSISTENT WITH HISTORY OF PANCREATITIS. Chest X-Ray 08/19/16 08:20 IMPRESSION: NO ACUTE RADIOGRAPHIC FINDING IN THE CHEST. Assessment & Plan - Diagnosis (1) Alcoholic pancreatitis Qualifiers: Chronicity: acute Acute pancreatitis complication: no infection or necrosis Qualified Code(s): K85.20 - Alcohol induced acute pancreatitis without necrosis or infection Is this a current diagnosis for this admission?: YesPlan: Continue IV fluids. Start clear liquid diet. When necessary analgesics and antiemetics. Follow-up lipase. Triglyceride level 150. Right upper quadrant ultrasound negative for gallstones. (2) Alcohol abuse Is this a current diagnosis for this admission?: YesPlan: Continue thiamine supplementation. Monitor for signs of withdrawal. When necessary Ativan. (3) Diabetes Qualifiers: Diabetes mellitus type: type 2 Diabetes mellitus complication status: without complication Diabetes mellitus oil heaterman insulin use: with oil heaterman use Qualified Code(s): E11.9 - Type 2 diabetes mellitus without complications Is this a current diagnosis for this admission?: YesPlan: Resume Lantus 5 units QHS. Sliding scale insulin coverage. Hemoglobin A1c 5.2. (4) Hypertension Is this a current diagnosis for this admission?: YesPlan: Metoprolol 50 mg twice daily. Resume Norvasc. When necessary IV hydralazine. (5) Hypernatremia Is this a current diagnosis for this admission?: Yes (6) Hepatitis C Is this a current diagnosis for this admission?: Yes (7) Cirrhosis Is this a current diagnosis for this admission?: Yes (8) Gout Is this a current diagnosis for this admission?: YesPlan: Treated with colchicine (9) Hypokalemia Is this a current diagnosis for this admission?: Yes (10) Hypomagnesemia Is this a current diagnosis for this admission?: YesPlan: Replace as needed. Start MagOx 800mg BID. (11) Hypocalcemia Is this a current diagnosis for this admission?: YesPlan: Replace as needed. (12) Thrombocytopenia Is this a current diagnosis for this admission?: YesPlan: Likely secondary to alcohol abuse, cirrhosis, and pancreatitis. Discontinued Arixtra. Encouraged patient to ambulate. - Time Time Spent with patient: 35 or more minutes Anticipated discharge: Home Within: within 72 hours
[2016-08-20] MEDS: MAGNESIUM SULFATE/D5W 100 ML IV SCH ×2 (08:57→10:07)
[2016-08-20] MEDS: MAGNESIUM OXIDE 400 MG TABLET PO SCH ×2 (09:08→17:54)
[2016-08-20] MEDS: AMLODIPINE BESYLATE 10 MG TABLET PO SCH (09:08)
[2016-08-20] MEDS: LANSOPRAZOLE 30 MG TAB.RAP.DR PO SCH (09:09)
[2016-08-20] MEDS: THIAMINE HCL 100 MG, FOLIC ACID 1 MG in NORMAL SALINE 50 ML IV SCH (10:07)
[2016-08-20] MEDS: HYDROMORPHONE HCL INJ/PF 2 MG/ML AMPULE IV PRN ×3 (11:15→20:27)
[2016-08-20] MEDS ORDERED: COLCHICINE 0.6 MG TABLET PO ONE (14:30)
[2016-08-20] MEDS: INSULIN LISPRO 100 UNIT/ML 3 ML VIAL SUBCUT PRN (16:40)
[2016-08-20] MEDS: INSULIN GLARGINE,HUM.REC.ANLOG 300 UNIT/3 ML INSULN.PEN SUBCUT SCH (23:12)
[2016-08-21] MEDS: HYDROMORPHONE HCL INJ/PF 2 MG/ML AMPULE IV PRN ×5 (00:27→20:34)
[2016-08-21] MEDS: METOPROLOL TARTRATE 50 MG TABLET PO SCH ×2 (05:37→18:13)
[2016-08-21] MEDS: PIPERACILLIN SODIUM/TAZOBACTAM 3.375 GM in NORMAL SALINE 100 ML IV SCH ×4 (05:37→23:12)
[2016-08-21 06:02] LABS: ABSOLUTE EOSINOPHILS # (AUTO) 0.1 10^3/uL (0.0-0.6); ABSOLUTE LYMPHOCYTES (AUTO) 2.4 10^3/uL (0.5-4.7); ABSOLUTE MONOCYTES (AUTO) 1.4 10^3/uL (0.1-1.4); ABSOLUTE NEUT (AUTO) 8.6 10^3/uL (1.7-8.2); BASOPHILS % (AUTO) 0.3 % (0-2); EOSINOPHILS % (AUTO) 1.1 % (0-6); HEMATOCRIT 31.3 % (37.9-51.0); HEMOGLOBIN 10.7 g/dL (13.5-17.0); HGB HCT DIFFERENCE 0.8; LYMPHOCYTES % (AUTO) 18.7 % (13-45); MEAN CORPUSCULAR HEMOGLOBIN 31.6 pg (27.0-33.4); MEAN CORPUSCULAR HGB CONC 34.3 g/dL (32.0-36.0); MEAN CORPUSCULAR VOLUME 92 fl (80-97); RED CELL DISTRIBUTION WIDTH 13.7 % (11.5-14.0); SEGMENTED NEUTROPHILS % (AUTO) 68.9 % (42-78); WHITE BLOOD COUNT 12.6 10^3/uL (4.0-10.5)
[2016-08-21 06:17] LABS: ALANINE AMINOTRANSFERASE 52 U/L (21-72); ALBUMIN 3.2 g/dL (3.5-5.0); ALKALINE PHOSPHATASE 104 U/L (38-126); ANION GAP 11 (5-19); ASPARTATE AMINO TRANSFERASE 70 U/L (17-59); BILIRUBIN,TOTAL 1.5 mg/dL (0.2-1.3); BLOOD UREA NITROGEN 4 mg/dL (7-20); CALCIUM 7.2 mg/dL (8.4-10.2); CARBON DIOXIDE 22 mmol/L (22-30); CHLORIDE 102 mmol/L (98-107); CREATININE RESULT 0.64 mg/dL (0.52-1.25); GLUCOSE 162 mg/dL (75-110); LIPASE 261.5 U/L (23-300); MAGNESIUM 1.6 mg/dL (1.6-2.3); POTASSIUM 3.4 mmol/L (3.6-5.0); SODIUM 134.7 mmol/L (137-145); TOTAL PROTEIN 6.9 g/dL (6.3-8.2)
[2016-08-21] MEDS: INSULIN LISPRO 100 UNIT/ML 3 ML VIAL SUBCUT PRN ×2 (08:35→11:54)
[2016-08-21] MEDS: AMLODIPINE BESYLATE 10 MG TABLET PO SCH (09:26)
[2016-08-21] MEDS: LANSOPRAZOLE 30 MG TAB.RAP.DR PO SCH (09:26)
[2016-08-21] MEDS: MAGNESIUM OXIDE 400 MG TABLET PO SCH ×2 (09:26→18:14)
[2016-08-21] MEDS: THIAMINE HCL 100 MG, FOLIC ACID 1 MG in NORMAL SALINE 50 ML IV SCH (09:26)
[2016-08-21] MEDS: POTASSI CL 20 MEQ/1/2NS 1L 1,000 ML IV PRN ×3 (09:26→22:12)
[2016-08-21] MEDS ORDERED: POTASSIUM CHLORIDE 10 MEQ TABLET.SA PO ONE (11:05)
[2016-08-21] MEDS ORDERED: COLCHICINE 0.6 MG TABLET PO ONE (12:15)
--- NOTE | 2016-08-21 14:22 | PDOC PROGRESS REPORT ---
Subjective Progress Note for:: 08/21/16 Subjective:: Patient was seen this morning at the bedside. He is complaining of gouty flare of the left knee and pain with the left toe. Dr. Leahy gave him a dose of colchicine yesterday which he states helped. He has some minimal abdominal pain and has been on clear liquids. He states that he is ready for his diet to be advanced. No acute events overnight. Physical Exam Vital Signs: Temp Pulse Resp BP Pulse Ox 98.6 F 91 18 138/78 H 100 08/21/16 08:13 08/21/16 08:13 08/21/16 08:13 08/21/16 08:13 08/21/16 08:13 Intake & Output 08/20/16 08/21/16 08/22/16 06:59 06:59 06:59 Intake Total 3490 5904 Output Total 600 1450 Balance 2890 4454 Weight 100.6 kg 99 kg Physical exam: Gen.: This a well-developed well-nourished appearing after [place] male resting on side of his bed currently in no acute distress Heart: Regular rate and rhythm no murmurs rubs or gallops Lungs: Clear to auscultation bilaterally with equal rise and fall of chest Abdomen: Soft nondistended Extremities: No clubbing or cyanosis. Peripheral pulses 1+. Some swelling of the left knee there is warmth with palpation. Very minimal tenderness to palpation of the toe. Neuro: Awake alert oriented 3 cranial nerves II through XII are grossly intact. Results Laboratory Results: 08/21/16 05:29 08/21/16 05:29 08/21/16 08/21/16 05:29 05:29 WBC 12.6 H RBC 3.40 L Hgb 10.7 L Hct 31.3 L MCV 92 MCH 31.6 MCHC 34.3 RDW 13.7 Plt Count 72 L Seg Neutrophils % 68.9 Lymphocytes % 18.7 Monocytes % 11.0 Eosinophils % 1.1 Basophils % 0.3 Absolute Neutrophils 8.6 H Absolute Lymphocytes 2.4 Absolute Monocytes 1.4 Absolute Eosinophils 0.1 Absolute Basophils 0.0 Sodium 134.7 L Potassium 3.4 L Chloride 102 Carbon Dioxide 22 Anion Gap 11 BUN 4 L Creatinine 0.64 Est GFR ( Amer) > 60 Est GFR (Non-Af Amer) > 60 Glucose 162 H Calcium 7.2 L Magnesium 1.6 Total Bilirubin 1.5 H AST 70 H ALT 52 Alkaline Phosphatase 104 Total Protein 6.9 Albumin 3.2 L Lipase 261.5 Impressions: Abdomen Ultrasound 08/17/16 11:47 IMPRESSION: 1. Borderline common bile duct with questionable small amount of sludge in the gallbladder. No gallstones are seen, however. There is no pericholecystic fluid or gallbladder wall thickening. 2. Hepatomegaly. Abdomen/Pelvis CT 08/19/16 00:00 IMPRESSION: STABLE TO SLIGHTLY WORSENED PERIPANCREATIC INFLAMMATORY CHANGE WITH INCREASED FREE FLUID IN THE ABDOMEN AND PELVIS AND NEW SMALL LEFT PLEURAL EFFUSION ALL CONSISTENT WITH HISTORY OF PANCREATITIS. Chest X-Ray 08/19/16 08:20 IMPRESSION: NO ACUTE RADIOGRAPHIC FINDING IN THE CHEST. Assessment & Plan - Diagnosis (1) Alcoholic pancreatitis Qualifiers: Chronicity: acute Acute pancreatitis complication: no infection or necrosis Qualified Code(s): K85.20 - Alcohol induced acute pancreatitis without necrosis or infection Is this a current diagnosis for this admission?: YesPlan: Lipase is normal. Will advance patient's diet to full clears. I suspect if the patient does well with this he may go home tomorrow. (2) Diabetes Qualifiers: Diabetes mellitus type: type 2 Diabetes mellitus complication status: without complication Diabetes mellitus custodial insulin use: with joint terminal attack controller use Qualified Code(s): E11.9 - Type 2 diabetes mellitus without complications Is this a current diagnosis for this admission?: YesPlan: Blood sugars are consistently below 200. Continue current medications. (3) Gout Qualifiers: Gout site: knee Gout etiology: idiopathic Laterality: left Chronicity: acute Qualified Code(s): M10.062 - Idiopathic gout, left knee Is this a current diagnosis for this admission?: YesPlan: Will give another dose of colchicine. This doesn't help the patient today I would recommend indomethacin. He states that he has no trouble taking NSAIDs. (4) Hepatitis C Is this a current diagnosis for this admission?: Yes (5) Hypernatremia Is this a current diagnosis for this admission?: YesPlan: Resolved (6) Thrombocytopenia Is this a current diagnosis for this admission?: YesPlan: Secondary to underlying cirrhosis stable (7) Alcohol abuse Is this a current diagnosis for this admission?: YesPlan: Alcohol cessation is recommended. (8) Cirrhosis Is this a current diagnosis for this admission?: Yes - Time Time Spent with patient: 25-34 minutes Anticipated discharge: Home - Inpatient Certification Medical Necessity: Significant Comorbidiites Make Outpatient Treatment Too Risky
[2016-08-21] MEDS: COLCHICINE 0.6 MG TABLET PO SCH (23:11)
[2016-08-21] MEDS: INSULIN GLARGINE,HUM.REC.ANLOG 300 UNIT/3 ML INSULN.PEN SUBCUT SCH (23:11)
[2016-08-22] MEDS: HYDROMORPHONE HCL INJ/PF 2 MG/ML AMPULE IV PRN (04:04)
[2016-08-22] MEDS: POTASSI CL 20 MEQ/1/2NS 1L 1,000 ML IV PRN ×2 (04:04→10:30)
[2016-08-22] MEDS: METOPROLOL TARTRATE 50 MG TABLET PO SCH ×2 (05:37→17:35)
[2016-08-22] MEDS: PIPERACILLIN SODIUM/TAZOBACTAM 3.375 GM in NORMAL SALINE 100 ML IV SCH (05:37)
[2016-08-22] MEDS: MAGNESIUM OXIDE 400 MG TABLET PO SCH ×2 (09:08→17:35)
[2016-08-22] MEDS: LANSOPRAZOLE 30 MG TAB.RAP.DR PO SCH (09:08)
[2016-08-22] MEDS: AMLODIPINE BESYLATE 10 MG TABLET PO SCH (09:09)
[2016-08-22] MEDS: COLCHICINE 0.6 MG TABLET PO SCH ×2 (09:09→22:33)
[2016-08-22] MEDS: THIAMINE HCL 100 MG, FOLIC ACID 1 MG in NORMAL SALINE 50 ML IV SCH (09:14)
[2016-08-22] MEDS ORDERED: OXYCODONE-ACETAMINOPHEN 5-325 MG TABLET PO ONE (09:30)
--- NOTE | 2016-08-22 14:24 | PDOC PROGRESS REPORT ---
Subjective Progress Note for:: 08/22/16 Subjective:: Patient feels that knee and toe are doing better today. He is able to ambulate the halls. He tolerated full liquids. He has no complaints and denies any chest pain or shortness of breath. Physical Exam Vital Signs: Temp Pulse Resp BP Pulse Ox 97.9 F 88 17 144/80 H 100 08/22/16 12:26 08/22/16 12:26 08/22/16 12:26 08/22/16 12:26 08/22/16 12:26 Intake & Output 08/21/16 08/22/16 08/23/16 06:59 06:59 06:59 Intake Total 5904 6232 Output Total 1450 1750 Balance 4454 4482 Weight 99 kg Physical exam: Gen.: This a well-developed well-nourished appearing after [place] male resting in his chair currently in no acute distress Heart: Regular rate and rhythm no murmurs rubs or gallops Lungs: Clear to auscultation bilaterally with equal rise and fall of chest Abdomen: Soft nondistended Extremities: No clubbing or cyanosis. Peripheral pulses 1+. Some swelling of the left knee. there is warmth with palpation. 1+ edema on the left and trace on the right Neuro: Awake alert oriented 3 cranial nerves II through XII are grossly intact. Results Laboratory Results: 08/21/16 05:29 08/21/16 05:29 Impressions: Abdomen Ultrasound 08/17/16 11:47 IMPRESSION: 1. Borderline common bile duct with questionable small amount of sludge in the gallbladder. No gallstones are seen, however. There is no pericholecystic fluid or gallbladder wall thickening. 2. Hepatomegaly. Abdomen/Pelvis CT 08/19/16 00:00 IMPRESSION: STABLE TO SLIGHTLY WORSENED PERIPANCREATIC INFLAMMATORY CHANGE WITH INCREASED FREE FLUID IN THE ABDOMEN AND PELVIS AND NEW SMALL LEFT PLEURAL EFFUSION ALL CONSISTENT WITH HISTORY OF PANCREATITIS. Chest X-Ray 08/19/16 08:20 IMPRESSION: NO ACUTE RADIOGRAPHIC FINDING IN THE CHEST. Assessment & Plan - Diagnosis (1) Alcoholic pancreatitis Qualifiers: Chronicity: acute Acute pancreatitis complication: no infection or necrosis Qualified Code(s): K85.20 - Alcohol induced acute pancreatitis without necrosis or infection Is this a current diagnosis for this admission?: YesPlan: Lipase is normal. Will advance patient's diet to full soft, low-fat diet. I suspect if the patient does well with this he may go home tomorrow. (2) Diabetes Qualifiers: Diabetes mellitus type: type 2 Diabetes mellitus complication status: without complication Diabetes mellitus correction insulin use: with vermin exterminator use Qualified Code(s): E11.9 - Type 2 diabetes mellitus without complications Is this a current diagnosis for this admission?: YesPlan: Blood sugars are consistently below 200. Continue current medications. (3) Gout Qualifiers: Gout site: knee Gout etiology: idiopathic Laterality: left Chronicity: acute Qualified Code(s): M10.062 - Idiopathic gout, left knee Is this a current diagnosis for this admission?: YesPlan: Continue maintenance doses of colchicine. Patient had a one-time dose of Percocet. Have relieves most of his pain.. (4) Hepatitis C Is this a current diagnosis for this admission?: Yes (5) Hypernatremia Is this a current diagnosis for this admission?: YesPlan: Resolved (6) Thrombocytopenia Is this a current diagnosis for this admission?: YesPlan: Secondary to underlying cirrhosis stable (7) Alcohol abuse Is this a current diagnosis for this admission?: YesPlan: Alcohol cessation is recommended. (8) Cirrhosis Is this a current diagnosis for this admission?: Yes - Time Time Spent with patient: 15-24 minutes - Inpatient Certification Medical Necessity: Significant Comorbidiites Make Outpatient Treatment Too Risky
[2016-08-22] MEDS: INSULIN LISPRO 100 UNIT/ML 3 ML VIAL SUBCUT PRN ×2 (15:12→17:36)
[2016-08-22] MEDS: ACETAMINOPHEN 325 MG TABLET PO PRN (17:42)
[2016-08-22] MEDS: INSULIN GLARGINE,HUM.REC.ANLOG 300 UNIT/3 ML INSULN.PEN SUBCUT SCH (22:33)
[2016-08-23] MEDS: ACETAMINOPHEN 325 MG TABLET PO PRN ×2 (02:15→08:23)
[2016-08-23 04:40] LABS: ABSOLUTE EOSINOPHILS # (AUTO) 0.1 10^3/uL (0.0-0.6); ABSOLUTE LYMPHOCYTES (AUTO) 2.9 10^3/uL (0.5-4.7); ABSOLUTE MONOCYTES (AUTO) 1.2 10^3/uL (0.1-1.4); ABSOLUTE NEUT (AUTO) 5.3 10^3/uL (1.7-8.2); BASOPHILS % (AUTO) 0.4 % (0-2); EOSINOPHILS % (AUTO) 1.1 % (0-6); HEMATOCRIT 36.4 % (37.9-51.0); HEMOGLOBIN 12.4 g/dL (13.5-17.0); HGB HCT DIFFERENCE 0.8; MEAN CORPUSCULAR HEMOGLOBIN 31.6 pg (27.0-33.4); MEAN CORPUSCULAR VOLUME 93 fl (80-97); MONOCYTES % (AUTO) 12.4 % (3-13); RED BLOOD COUNT 3.92 10^6/uL (4.35-5.55); RED CELL DISTRIBUTION WIDTH 13.5 % (11.5-14.0); SEGMENTED NEUTROPHILS % (AUTO) 56.1 % (42-78); WHITE BLOOD COUNT 9.5 10^3/uL (4.0-10.5)
[2016-08-23 04:47] LABS: ALANINE AMINOTRANSFERASE 62 U/L (21-72); ALKALINE PHOSPHATASE 134 U/L (38-126); ANION GAP 18 (5-19); ASPARTATE AMINO TRANSFERASE 85 U/L (17-59); BILIRUBIN,DIRECT 0.6 mg/dL (0.0-0.4); BILIRUBIN,TOTAL 0.9 mg/dL (0.2-1.3); BLOOD UREA NITROGEN 5 mg/dL (7-20); CALCIUM 9.1 mg/dL (8.4-10.2); CARBON DIOXIDE 24 mmol/L (22-30); CHLORIDE 103 mmol/L (98-107); CREATININE RESULT 0.66 mg/dL (0.52-1.25); GLUCOSE 161 mg/dL (75-110); MAGNESIUM 1.6 mg/dL (1.6-2.3); POTASSIUM 3.6 mmol/L (3.6-5.0); SODIUM 145.2 mmol/L (137-145); TOTAL PROTEIN 8.2 g/dL (6.3-8.2)
[2016-08-23] MEDS: METOPROLOL TARTRATE 50 MG TABLET PO SCH (06:38)
[2016-08-23] MEDS: AMLODIPINE BESYLATE 10 MG TABLET PO SCH (09:19)
[2016-08-23] MEDS: COLCHICINE 0.6 MG TABLET PO SCH (09:19)
[2016-08-23] MEDS: LANSOPRAZOLE 30 MG TAB.RAP.DR PO SCH (09:20)
[2016-08-23] MEDS: MAGNESIUM OXIDE 400 MG TABLET PO SCH (09:20)
[2016-08-23] MEDS: THIAMINE HCL 100 MG, FOLIC ACID 1 MG in NORMAL SALINE 50 ML IV SCH (09:20)
[2016-08-23] MEDS: INSULIN LISPRO 100 UNIT/ML 3 ML VIAL SUBCUT PRN (11:23)
[2016-08-23 11:45] VITALS: BP 138/77
--- NOTE | 2016-08-23 12:40 | PDOC DISCHARGE SUMMARY ---
General - Admit/Disc Date/PCP Admission Date/Primary Care Provider: 08/17/16 15:35 AMANDA GODFREY MD Discharge Date: 08/23/16 - Discharge Diagnosis (1) Alcoholic pancreatitis Is this a current diagnosis for this admission?: YesSummary: Result. Patient is tolerating a regular diet. (2) Diabetes Is this a current diagnosis for this admission?: YesSummary: Under reasonable control follow with PCP. (3) Gout Is this a current diagnosis for this admission?: YesSummary: Continue maintenance colchicine. As needed Percocet has been prescribed. Only 15 tablets (4) Hepatitis C Is this a current diagnosis for this admission?: YesSummary: Follow-up with PCP. (5) Hypernatremia Is this a current diagnosis for this admission?: YesSummary: Resolved. (6) Thrombocytopenia Is this a current diagnosis for this admission?: YesSummary: Much improved. The patient leaves with platelet count in the 120s. Likely it decline secondary to his underlying pancreatitis. (7) Alcohol abuse Is this a current diagnosis for this admission?: YesSummary: Cessation is advised. (8) Cirrhosis Is this a current diagnosis for this admission?: YesSummary: Follow-up with PCP. - Additional Information Resuscitation Status: Full Code Discharge Activity: Activity As Tolerated, Balance Activity w/Rest, Slowly Increase Activity Home Medications: Amlodipine Besylate 10 mg PO DAILY 08/17/16 Cyclobenzaprine HCl [Flexeril 10 mg Tablet] 10 mg PO Q12HP PRN 08/17/16 Insulin Glargine,Hum.rec.anlog [Lantus Solostar] 5 units SQ QHS 08/17/16 Lisinopril/Hydrochlorothiazide [Lisinopril-Hctz 20-25 mg Tab] 1 tab PO DAILY 08/29 Magnesium 500mg 1,000 mg PO QPM 08/17/16 Magnesium 500mg 500 mg PO DAILY 08/17/16 Metformin HCl 500 mg PO [id number] 08/17/16 Metoprolol Tartrate 50 mg PO Q12 08/17/16 Omeprazole 40 mg PO DAILY 08/17/16 Ranitidine HCl [Zantac 150 mg Tablet] 150 mg PO Q12 08/17/16 Colchicine [Colcrys 0.6 mg Tablet] 0.6 mg PO DAILY #30 tablet 08/23/16 Oxycodone HCl/Acetaminophen [Percocet 5-325 mg Tablet] 1 tab PO Q6H PRN #15 tab 08/23/16 History of Present Illness History of Present Illness: History of present illness as per Dr. Leahy History of Present Illness Admission Date/PCP: 08/17/16 15:35 Dixon Ruffin MD Patient complains of: Abdominal pain History of Present Illness: KELL HERNÁNDEZ III is a 50 year old male with past medical history of alcohol abuse, hepatitis C cirrhosis, type II diabetes, hypertension, gout, pancreatitis history presents to the emergency department with onset at 2 AM of pancreatitis. Last alcohol use was last night. He states he has never been through alcohol withdrawal. Medications listed below have not been verified at the time of this documentation. Hospital Course Hospital Course: The patient was here, he received treatment with IV antibiotic therapy for acute pancreatitis. He had an elevated white blood cell count which is likely attributable to his pancreatitis. Nevertheless he was treated empirically in case there were any other superinfections. He was made nothing by mouth. And treated with as needed Dilaudid. Over all he did quite well and was able to be transitioned to clear liquid diet by the time I met him. He tolerated this reasonably well and therefore was advanced up to regular diet. While he was here he also developed acute gouty flare of the left knee. This was initially treated with colchicine. Patient responded well to this. At this point he is fit for discharge. Physical Exam Vital Signs: Temp Pulse Resp BP Pulse Ox 97.9 F 89 16 138/77 H 100 08/23/16 11:43 08/23/16 11:43 08/23/16 11:43 08/23/16 11:43 08/23/16 11:43 Intake & Output 08/22/16 08/23/16 08/24/16 06:59 06:59 06:59 Intake Total 6232 2906 Output Total 8552 Balance 4482 2906 Weight 97.8 kg Physical exam: Gen.: This a well-developed well-nourished appearing male resting in his chair currently in no acute distress Heart: Regular rate and rhythm no murmurs rubs or gallops Lungs: Clear to auscultation bilaterally with equal rise and fall of chest Abdomen: Soft nondistended Extremities: No clubbing or cyanosis. Peripheral pulses 1+. Some swelling of the left knee. there is warmth with palpation. 1+ edema on the left and trace on the right Neuro: Awake alert oriented 3 cranial nerves II through XII are grossly intact. Results Laboratory Results: 08/23/16 04:17 08/23/16 04:17 08/23/16 08/23/16 04: 04:17 WBC 9.5 RBC 3.92 L Hgb 12.4 L Hct 36.4 L MCV 93 MCH 31.6 MCHC 34.0 RDW 13.5 Plt Count 126 L Seg Neutrophils % 56.1 Lymphocytes % 30.0 Monocytes % 12.4 Eosinophils % 1.1 Basophils % 0.4 Absolute Neutrophils 5.3 Absolute Lymphocytes 2.9 Absolute Monocytes 1.2 Absolute Eosinophils 0.1 Absolute Basophils 0.0 Sodium 145.2 H Potassium 3.6 Chloride 103 Carbon Dioxide 24 Anion Gap 18 BUN 5 L Creatinine 0.66 Est GFR ( Amer) > 60 Est GFR (Non-Af Amer) > 60 Glucose 161 H Calcium 9.1 Magnesium 1.6 Total Bilirubin 0.9 AST 85 H ALT 62 Alkaline Phosphatase 134 H Total Protein 8.2 Albumin 4.0 Impressions: Abdomen Ultrasound 08/17/16 11:47 IMPRESSION: 1. Borderline common bile duct with questionable small amount of sludge in the gallbladder. No gallstones are seen, however. There is no pericholecystic fluid or gallbladder wall thickening. 2. Hepatomegaly. Abdomen/Pelvis CT 08/19/16 00:00 IMPRESSION: STABLE TO SLIGHTLY WORSENED PERIPANCREATIC INFLAMMATORY CHANGE WITH INCREASED FREE FLUID IN THE ABDOMEN AND PELVIS AND NEW SMALL LEFT PLEURAL EFFUSION ALL CONSISTENT WITH HISTORY OF PANCREATITIS. Chest X-Ray 08/19/16 08:20 IMPRESSION: NO ACUTE RADIOGRAPHIC FINDING IN THE CHEST. Qualifiers PATEINT BEING DISCHARGED WITH ANY OF THE FOLLOWING DIAGNOSIS?: No Plan Time Spent: Less than 30 Minutes
== END 2016-08-23 12:41 | disposition home or self-care (01) | DRG 439 ==
LOC: ER 09:23 → EH 15:27 → UNDOADMIN 15:27 → EH 15:35 → 5 22:23
PROVIDERS: ADMIT Internal Medicine; ATTEND Internal Medicine
DX: K85.20 Alcohol induced acute pancreatitis without necrosis or infection (principal); E87.0 Hyperosmolality and hypernatremia; M10.9 Gout, unspecified; B18.2 Chronic viral hepatitis C; D69.59 Other secondary thrombocytopenia; K70.30 Alcoholic cirrhosis of liver without ascites; E11.9 Type 2 diabetes mellitus without complications; I10 Essential (primary) hypertension; E87.6 Hypokalemia; E83.42 Hypomagnesemia; E83.51 Hypocalcemia; M10.072 Idiopathic gout, left ankle and foot; F10.10 Alcohol abuse, uncomplicated; Z79.4 Long term (current) use of insulin; Z82.49 Family history of ischemic heart disease and other diseases of the circulatory system
CPT/HCPCS: 36415; 71010; 74177; 76705; 80053; 80061; 80307; 81001; 82550; 82553; 82962; 83036; 83690; 83735; 83880; 84484; 85025; 85610; 85730; 87040; 93005; 93010; 96361; 96365; 96366; 96375; 99285; J0610; J1170; J1652; J1815; J2060; J2270; J2405; J2543; J3411; J3475; J3480; J3490; J7030; S0164